=== PATIENT | female | born 1950 | race Caucasian/White ===

== ENCOUNTER → 2017-04-04 | Outpatient (CLI) | payer MEDICARE, BC ==
--- NOTE | 2017-04-06 07:32 | CT ---
EXAM DESCRIPTION: Lumbar Spine CLINICAL HISTORY: LUMBAR DDD COMPARISON: None. TECHNIQUE: Noncontrast multidetector CT imaging of the lumbar spine was performed. Multiplanar reconstructions were generated. This exam was performed according to our departmental dose-optimization program which includes automated exposure control, adjustment of the mA and/or kV according to patient size and/or use of iterative reconstruction technique. FINDINGS: GENERAL For the purposes of the stomach and the lowest complete disc level will be considered L5-S1. The lumbar lordosis is maintained. No acute fracture the lumbar spine is demonstrated. No aggressive lytic or blastic osseous lesions. There is a levocurvature of the lower lumbar spine with Arceo angle approaching 10 degrees between L4-L5. Associated endplate degenerative changes. See separate report from the same day for CT abdomen pelvis findings. SI joints and sacral struts are intact. L1-2 No significant findings. L2-3 No significant findings. L3-4 Mild left foraminal/extraforaminal bulging of the disc is seen contributing to minimal narrowing of the left neural foramen. No definite focal neurologic impingement. Mild left facet arthritis greater on the left side. L4-5 Levocurvature of the lumbar spine centered at this level with associated right-sided endplate sclerosis/degenerative changes. Disc height loss. Vacuum disc phenomenon. Severe right and moderate to severe left facet arthritis/hypertrophy. Ligamentum flavum buckling is present. Circumferential bulging of the disc likely extends 0.5 cm into the central spinal canal which is narrowed to approximately 0.6 cm in AP dimension. There is triangulation of the thecal sac. Moderate effacement left neural foraminal fat primarily from facet joint disease. Severe effacement of the right neural foraminal fat from combination facet hypertrophy and endplate osteophyte formation as well as disc disease. L5-S1 Advanced disc height loss with vacuum disc phenomenon. Circumferential disc osteophyte formation. No high-grade central spinal canal narrowing. Severe right and mild left facet arthritis. Moderate effacement left neural foraminal fat from osseous encroachment. Moderate to severe effacement of the right neural foraminal fat also from endplate osteophyte formation and facet joint disease. IMPRESSION: Advanced central spinal canal narrowing multifactorial L4-5. Advanced right L4-5 neural foraminal narrowing multifactorial. Multilevel facet arthritis of the lumbar spine greatest at the L4-5 level. Less specific findings described above requiring careful clinical correlation with distribution of symptoms. Electronically signed by: Fred Cabrera MD 04/06/2017 7:31 AM [facility]
--- NOTE | 2017-04-06 07:38 | CT ---
EXAM DESCRIPTION: Abdomen/Pelvis w/wo Contrast CLINICAL HISTORY: LLQ ABD PAIN COMPARISON: None TECHNIQUE: Pre and postcontrast multidetector CT imaging of the abdomen and pelvis was performed. Multiplanar reconstructions were generated. This exam was performed according to our departmental dose-optimization program which includes automated exposure control, adjustment of the mA and/or kV according to patient size and/or use of iterative reconstruction technique. FINDINGS: Lung bases: Partially calcified granulomas of the lung bases. No concerning pulmonary nodules. No acute airspace disease demonstrated within the lung bases. Liver: Unremarkable. Gallbladder and biliary system: Surgically absent. Pancreas: Unremarkable. Spleen: Unremarkable. Adrenal glands: Normal Kidneys: Unremarkable. Bladder: No abnormal bladder mucosal enhancement. Gastrointestinal: Extensive distal colonic diverticulosis is noted. There is no acute CT finding for a diverticulitis. There is no gastrointestinal obstruction or inflammation. Pelvic organs: Uterus nonvisualized. No adnexal masses. Other: No free fluid, free intraperitoneal gas or lymphadenopathy. No aggressive lytic or blastic osseous lesions are present see separate report from same day for lumbar spine CT findings. IMPRESSION: Extensive distal colonic diverticulosis. No CT findings for acute diverticulitis. Additional chronic findings described above. Electronically signed by: Fred Cabrera MD 04/06/2017 7:37 AM [facility]
== END | disposition home or self-care (01) ==
LOC: CT 14:47
PROVIDERS: ATTEND General Practice
DX: K57.30 Diverticulosis of large intestine without perforation or abscess without bleeding (principal); R10.32 Left lower quadrant pain; M51.36 Other intervertebral disc degeneration, lumbar region

== ENCOUNTER → 2017-05-02 | Outpatient (CLI) | payer MEDICARE, BC ==
--- NOTE | 2017-05-03 09:52 | MRI ---
Study: MRI of the Left Knee. Indication: KNEE PAIN Technique: Multiplanar, multi sequence MRI of the left knee was obtained without intravenous contrast. Comparison: None. Findings: ACL and PCL intact. Both the MCL and FCL are slightly thickened and lax with mild increased internal PD signal. In addition, there is mild thickening of the distal IT band. These findings can be seen in the setting of the osteoarthritic knee. No acute tear defect of the medial or lateral collateral structures. Prominent oblique undersurface tearing posterior horn and body meniscus with high-grade radial free edge tearing and 4 mm extrusion of the body which is attenuated. Pronounced grade 4 chondral loss at the majority of the medial compartment with grade 3 chondral loss more laterally. Mild cortical remodeling. Free edge fraying posterior horn lateral meniscus. Patchy areas of grade 3 chondrosis throughout the lateral compartment. Insertional quadriceps tendinosis without tear. Patellar tendon intact. Patella normally located. Patchy grade 2-3 chondrosis medial patellar facet/apex and midline femoral trochlea. Small knee effusion. No acute fracture. Within the medial meniscotibial gutter anteriorly there is an ovoid 14 mm ossified body. This lies immediately anterior to the MCL. Impression: Complex multidirectional tearing medial meniscus. Free edge fraying posterior horn lateral meniscus. Tricompartmental chondrosis most pronounced at the medial compartment as above. Small knee effusion. 14 mm ossified body within the meniscotibial recess medially. Small knee effusion. Additional findings as above. Electronically signed by: Boaz Willis MD 05/03/2017 9:51 AM [employer]
== END | disposition home or self-care (01) ==
LOC: MRI 13:30
PROVIDERS: ATTEND Nurse Practitioner
DX: S83.242A Other tear of medial meniscus, current injury, left knee, initial encounter (principal); M25.462 Effusion, left knee

== ENCOUNTER → 2017-07-26 | Outpatient (CLI) | payer MEDICARE, BC ==
--- NOTE | 2017-07-27 14:12 | RAD ---
EXAM DESCRIPTION: Abdomen Flat Upright CLINICAL HISTORY: 67 years Female, LLQ ABDOMEN PAIN COMPARISON: Previous CT abdomen and pelvis April 04, 2017. TECHNIQUE: Upright and supine x-ray views of abdomen and pelvis FINDINGS: Gallbladder clips are seen in the right upper quadrant. The lung bases appear relatively clear. Heart size is normal. Rightward scoliotic curvature of the L-spine. Degenerative changes are seen at the lower L-spine. Moderate amount of fecal material in the colon. Multiple phleboliths in the pelvis. Degenerative changes are seen at the pubic symphysis. No visceromegaly or mass. No small bowel dilatation to suggest obstruction. IMPRESSION: No acute process is identified in the abdomen or pelvis. Electronically signed by: Clarence Garcia MD 07/27/2017 2:09 PM CDT
== END ==
LOC: RAD 15:00
PROVIDERS: ATTEND Surgery
DX: R10.814 Left lower quadrant abdominal tenderness (principal)

== ENCOUNTER → 2018-08-15 | Outpatient (CLI) | payer MEDICARE, BC ==
--- NOTE | 2018-08-22 12:41 | MAM ---
EXAM DESCRIPTION: 3D Screening BILATERAL : Digital Mammography. CLINICAL HISTORY: 68 years Female SCREENING . No complaints or personal history of breast cancer. Sister with breast and ovarian cancer. Childbirth. Premenopausal 31 years no HRT. Lifetime risk of developing breast cancer (Tyrer-Cuzick model)(%): 10.3. COMPARISON: Bilateral screening 2-D digital mammography 07/08/2014. No prior reports available. TECHNIQUE: Bilateral CC and MLO projection full-field images, digital tomosynthesis mammographic technique. Bilateral digital 2-D full-field MLO images. CAD not available for tomosynthesis or 2-D images. FINDINGS: The breast parenchymal density pattern is: Scattered areas of fibroglandular density. No skin thickening or nipple retraction. Bilateral axillary lymph nodes and solitary microcalcifications. There are also smaller calcifications along with the fibroglandular density in the retroareolar breast. No new focal, stellate mass or density, focal asymmetry , and no suspicious microcalcifications bilaterally. Stable mammograms compared to prior study. Taking into account, differences in mammographic technique. IMPRESSION: Benign exam. BIRAD CATEGORY: 2 BENIGN FINDINGS. RECOMMENDATIONS: FOLLOW UP: Routine digital bilateral mammographic screening, one year interval from July 2018. Written communication explaining the IMPRESSION and follow-up, will be mailed to the patient and referring health care provider. The FINDINGS and the FOLLOW-UP plan were reviewed in person with the patient after the examination. According to the [employer], yearly mammograms are recommended starting at age 40 and continuing as long as a woman is in good health. Any breast change noted on a breast self-exam should be reported promptly to the patient's healthcare provider. Breast MRI is recommended for women with an approximately 20-25% or greater lifetime risk of breast cancer, including women with a strong family history of breast or ovarian cancer and women who have been treated for Hodgkin's disease. A negative mammographic report should not delay tissue diagnosis in patients with significant clinical history or physical findings. Extremely dense breast tissue limits the sensitivity of digital mammography. Electronically signed by: Eliot Lino MD 08/22/2018 12:39 PM CDT
== END ==
LOC: MAMMO 12:42
PROVIDERS: ATTEND General Practice
DX: Z12.31 Encounter for screening mammogram for malignant neoplasm of breast (principal)

== ENCOUNTER → 2019-12-05 | Outpatient (CLI) | payer MEDICARE, BC ==
--- NOTE | 2019-12-05 15:47 | RAD ---
EXAM DESCRIPTION: Wrist,Right 3 Views CLINICAL HISTORY: 69 years, Female, PAIN COMPARISON: Previous right wrist x-ray August 04, 2013 FINDINGS: Right wrist 3 x-ray views shows fracture of the mid scaphoid with 1 mm gap at the fracture site. No angulation. No underlying lesion to suggest a pathologic fracture. The fracture is new compared to the previous study. Distal radius and ulna appear intact. Normal metacarpals. No significant arthritic changes are observed. IMPRESSION: Fracture through the mid right scaphoid Electronically signed by: Clarence Garcia MD 12/05/2019 3:44 PM CDT
== END ==
LOC: RAD 09:01
PROVIDERS: ATTEND Orthopaedic Surgery
DX: S62.001A Unspecified fracture of navicular [scaphoid] bone of right wrist, initial encounter for closed fracture (principal)

== ENCOUNTER → 2019-12-11 | Outpatient (CLI) | payer MEDICARE, BC ==
--- NOTE | 2019-12-12 06:53 | MRI ---
Study: MRI of the right wrist. Indication: FX Technique: Multiplanar, multi sequence MRI of the right wrist was obtained without intravenous contrast. Comparison: Radiographs December 05, 2019 Findings: Transverse fracture distal pole of the scaphoid redemonstrated. It is grossly nondisplaced. Surrounding marrow edema throughout the entirety of the scaphoid. Mild cystic changes scaphoid about the fracture plane suspected. The fracture margins appear sclerotic and are likely ununited. Tiny radiocarpal joint effusion. Degenerative signal scapholunate ligament TFC without rupture. Lunotriquetral ligament intact. 2 mm negative ulnar variance. Mild osteoarthritis of the distal radioulnar joint, STT joint, and first CMC joint. Extensor tendons, flexor tendons, flexor retinaculum, median nerve, and ulnar nerve are unremarkable. Impression: Subacute appearing nondisplaced fracture distal pole of scaphoid with extensive marrow edema throughout the scaphoid and mild cystic change about the fracture. The fracture is likely ununited with sclerotic fracture margins. CT can better evaluate the fracture plane as clinically indicated. Additional findings as above. Electronically signed by: Boaz Willis MD 12/12/2019 6:51 AM CDT
== END ==
LOC: MRI 10:49
PROVIDERS: ATTEND Orthopaedic Surgery
DX: S62.001A Unspecified fracture of navicular [scaphoid] bone of right wrist, initial encounter for closed fracture (principal); R60.9 Edema, unspecified

== ENCOUNTER → 2020-03-12 | Outpatient (CLI) | payer MEDICARE, BC ==
--- NOTE | 2020-03-12 13:02 | RAD ---
EXAM DESCRIPTION: Wrist,Right 3 Views CLINICAL HISTORY: 70 years Female, FRACTURE OF DCAPHOID BONE OF WRIST COMPARISON: December 05, 2019 Findings: Four view(s)/radiograph(s) Healing internally fixated scaphoid waist fracture. No AVN. No hardware complication. No new fracture. No dislocation. Similar degenerative changes. Carpal alignment maintained. IMPRESSION: Healing internally fixated right scaphoid waist fracture. No complication identified. Electronically signed by: Ishmael Siu MD 03/12/2020 1:01 PM [facility]
== END ==
LOC: RAD 08:05
PROVIDERS: ATTEND Orthopaedic Surgery
DX: S62.001D Unspecified fracture of navicular [scaphoid] bone of right wrist, subsequent encounter for fracture with routine healing (principal); Z98.890 Other specified postprocedural states

== ENCOUNTER → 2020-05-06 | Outpatient (CLI) | payer MEDICARE ==
--- NOTE | 2020-05-06 11:21 | RAD ---
EXAM DESCRIPTION: Wrist,Right 3 Views CLINICAL HISTORY: FRACTURE OF SCAPHOID BONE OR RIGHT WRIST COMPARISON: 12 March 2020 TECHNIQUE: 3 views right FINDINGS: Exam reveals a threaded pin traversing the scaphoid. There is lucency about the distal aspect suggesting the possibility of loosening or infection. The exam also suggests some separation of the fracture fragments of the scaphoid. Diffuse osteopenia is observed. Mild subchondral cyst formation is observed in the distal radius. IMPRESSION: The exam again reveals prior fixation of a scaphoid fracture. There is some lucency about the distal aspect of the threaded pin suggesting the possibility of loosening infection. There is also a separation of the fracture fragments Electronically signed by: Tristan Matias MD 05/06/2020 11:20 AM [facility]
== END ==
LOC: RAD 08:20
PROVIDERS: ATTEND Orthopaedic Surgery
DX: S62.001D Unspecified fracture of navicular [scaphoid] bone of right wrist, subsequent encounter for fracture with routine healing (principal)

== ENCOUNTER → 2020-05-13 | Outpatient (CLI) | payer MEDICARE, OTHER ==
--- NOTE | 2020-05-14 10:25 | CT ---
Study: CT of the Right Wrist. Indication: FRACTURE OF SCAPHOID BONE OF RIGHT WRIST Technique: Axial CT of the right wrist was performed without contrast. Coronal and sagittal reformats performed. This exam was performed according to our departmental dose-optimization program, which includes automated exposure control, adjustment of the mA and/or kV according to patient size and/or use of iterative reconstruction technique. Comparison: Radiographs May 06, 2020 and March 12, 2021. MRI December 11, 2019 Findings: Prior ORIF of a scaphoid waist fracture with a single surgical screw. The distal screw tip within the distal scaphoid fragment extends into the scaphoid-trapezium joint and closely approximates the proximal articular surface of the trapezium. The proximal half of the surgical screw appears largely extraosseous. The proximal scaphoid fracture fragment has become fragmented into 2 dominant components. The screw does not transfix either these components. The more dorsal/proximal component measures up to 13 mm transverse by 5 mm AP by 10 mm craniocaudal and involves the majority the proximal pole. It is displaced dorsally by 5 mm. The more volar and slightly more proximal fracture component measures up to 10 mm transverse by 5 mm AP by 7 mm craniocaudal. No bridging osseous union about the dominant fracture plane of the scaphoid waist or of the fragmented proximal pole. The proximal margin of the screw directly abuts the proximal/dorsal margin of the capitate cortex. Mild widening of the scapholunate interval at 4 mm. Bone graft harvesting from the dorsal margin distal radius suspected versus intraosseous cystic change. 1 mm negative ulnar variance. Mild osteoarthritis STT joint and first MC joint. Impression: Status post ORIF of the scaphoid with the dominant proximal fragment demonstrating progressive fragmentation and displacement from the proximal screw. The screw abuts the capitate proximally and the trapezium distally. No osseous union of the scaphoid fracture. Additional findings as above. Electronically signed by: Boaz Willis MD 05/14/2020 10:24 AM [facility]
== END ==
LOC: CT 09:40
PROVIDERS: ATTEND Orthopaedic Surgery
DX: S62.001D Unspecified fracture of navicular [scaphoid] bone of right wrist, subsequent encounter for fracture with routine healing (principal); T84.298A Other mechanical complication of internal fixation device of other bones, initial encounter; Z98.890 Other specified postprocedural states